=== PATIENT | female | born 1960 | race Caucasian/White ===

== ENCOUNTER 2019-10-14 06:52 | Outpatient (CLI) | payer MEDICARE, OTHER ==
[2019-10-15 13:15] LABS: SARS-CoV-2 MS2 Positive; SARS-CoV-2 N Gene Negative; SARS-CoV-2 S Gene Negative; SARS-CoV-2 orf1ab Negative
== END 2019-10-14 06:53 | disposition home or self-care (01) ==
LOC: LABBT 06:52
PROVIDERS: ATTEND Neurological Surgery
DX: Z01.812 Encounter for preprocedural laboratory examination (principal); Z11.59 Encounter for screening for other viral diseases; M54.16 Radiculopathy, lumbar region
CPT/HCPCS: 87635; U0003

== ENCOUNTER 2019-10-17 06:13 | Day surgery (SDC) | payer OTHER ==
[2019-10-14 14:51] VITALS: BMI 40.6
--- NOTE | 2019-10-17 01:04 | HP ---
HISTORY OF PRESENT ILLNESS: Ms. Isabel is a 59-year-old woman, referred to us for ongoing right-sided low back pain as well as right L5 radiculopathy. She has been treating this with medications, therapy, and spinal injections with minimal relief today. She presents now with hopes of correcting her heart troubles. She reportedly had surgery with Dr. Colby in 2007 with minimal relief since that time. 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 PAST MEDICAL HISTORY: Significant for hypertension. CURRENT MEDICATIONS: Tramadol, Contrave, gabapentin, estradiol, and spironolactone. ALLERGIES: NO KNOWN DRUG ALLERGIES. PAST SURGICAL HISTORY: Bilateral knee replacements, lumbar fusion and hardware removal, hysterectomy, E-stim implant. PHYSICAL EXAMINATION: NEUROLOGIC: The patient is alert and oriented x3. Gait is antalgic and slowed. Lower extremity motor exam is normal. ASSESSMENT: Lumbar radiculopathy. PLAN: Dr. Macias met with the patient, reviewed imaging, advocated for an L4-S1 decompression. He explained to the patient the risks, benefits, and alternatives to the procedure. The patient expressed understanding and elected to move forward with surgery as discussed. I do believe the patient is mentally competent and capable of making medical decisions for herself. We will move forward with surgery as planned. Job ID: [id number]
[2019-10-17] MEDS ORDERED: Bupivacaine PF 0.5% 30 ML VIAL ONE (07:34)
[2019-10-17] MEDS ORDERED: EPINEPHrine 1 MG/ML AMP ONE (07:34)
[2019-10-17] MEDS ORDERED: Thrombin 5000 UNITS/5 ML VIAL ONE (07:34)
[2019-10-17] MEDS ORDERED: Fentanyl 100 MCG/2 ML VIAL ONE ×2 (07:48→09:57)
[2019-10-17] MEDS ORDERED: Midazolam HCl 2 mg/2 ml Vial ONE (07:59)
--- NOTE | 2019-10-17 09:29 | OP ---
DATE OF PROCEDURE: 10/17/2019 B[employer]IAL VAULT SETTER: Lauri Roque PA-C INDICATION: Pain. DIAGNOSIS: Lumbar radiculopathy. PROCEDURE: L4 through S1 right-sided decompression. ANESTHESIA: General. DESCRIPTION OF PROCEDURE: The patient was brought into the operating room and placed under general anesthesia. She was flipped from the supine to prone position on the operating room table. A linear incision was planned spanning L4 through S1. After prepping and draping and after an appropriate preoperative pause, the incision was created. The soft tissues were swept right of midline. A self-retaining retractor was placed for optimal exposure. After confirming the appropriate level with C-arm fluoroscopy, high-speed cutting drill bit as well as 2, 3, and 4 mm Kerrisons were used to remove right side of L5 to encompass the L4-L5 segment and a small portion of the L5-S1 segment. The goal at the end was to decompress the L5 nerve root as it descended and exited through the L5 foramen. The laminectomy was extended laterally to encompass the medial aspect of the facet joint. After completing the decompression, the wound was irrigated. Hemostasis was maintained throughout. The wound was then closed in anatomic layers and a pressure dressing was applied. There were no known procedural complications. Job ID: [id number]
[2019-10-17] MEDS ORDERED: Promethazine HCl 25 MG/ML VIAL ONE (09:37)
[2019-10-17] MEDS ORDERED: HYDROcodone/Acetaminophen 5/325 mg Tablet ONE (10:55)
[2019-10-17] MEDS ORDERED: Dexamethasone 20 MG/5 ML VIAL ONE (12:07)
[2019-10-17] MEDS ORDERED: Rocuronium Bromide 10 MG/ML (10ML VIAL) ONE (12:07)
[2019-10-17] MEDS ORDERED: PROPOFOL 200 MG/20 ML VIAL ONE (12:07)
[2019-10-17] MEDS ORDERED: Ondansetron PF 4 MG/2 ML Vial ONE (12:07)
--- NOTE | 2019-10-19 17:54 | EKG ---
Test Reason : PREOP Blood Pressure : / mmHG Vent. Rate : 069 BPM Atrial Rate : 069 BPM P-R Int : 162 ms QRS Dur : 106 ms QT Int : 404 ms P-R-T Axes : 022 -26 017 degrees QTc Int : 432 ms Normal sinus rhythm Normal ECG No previous ECGs available Confirmed by CHEN VICTORIA (2) on 10/19/2019 5:53:44 PM Referred By: BREA Confirmed By:CHEN VICTORIA
== END 2019-10-17 11:50 | disposition home or self-care (01) ==
LOC: SDC 06:13
PROVIDERS: ATTEND Neurological Surgery
PROC: 01NB0ZZ Release Lumbar Nerve, Open Approach (ICD-10-PCS; principal; 2019-10-17)
DX: M48.061 Spinal stenosis, lumbar region without neurogenic claudication (principal); M51.16 Intervertebral disc disorders with radiculopathy, lumbar region; I10 Essential (primary) hypertension; F41.9 Anxiety disorder, unspecified; E66.9 Obesity, unspecified; Z68.41 Body mass index [BMI] 40.0-44.9, adult; Z79.899 Other long term (current) drug therapy; Z88.5 Allergy status to narcotic agent
CPT/HCPCS: 76000; 93005; 93010; J0171; J0690; J1100; J2250; J2405; J2550; J2704; J3010; S0020